=== PATIENT | female | born 1985 | race Caucasian/White ===

== ENCOUNTER 2017-11-24 15:10 | Emergency (ER) | payer OTHER ==
[~2017-11-24] VITALS: Ht 157.5 cm; Wt 60.3 kg
[2017-11-24 15:16] VITALS: BP 113/76
[2017-11-24] MEDS ORDERED: NORCO 5/3251 TABLET PO (16:21)
== END 2017-11-24 17:02 | disposition home or self-care (01) ==
LOC: EME 15:10
DX: S92.355A Nondisplaced fracture of fifth metatarsal bone, left foot, initial encounter for closed fracture (principal); Y93.01 Activity, walking, marching and hiking; Z88.8 Allergy status to other drugs, medicaments and biological substances
CPT/HCPCS: 73630; 99281; 99283

== ENCOUNTER 2018-01-04 02:39 | Emergency (ER) | payer OTHER ==
[~2018-01-04] VITALS: Ht 157.5 cm; Wt 63.4 kg
[~2018-01-04 02:39] MED LIST: NORCO 5/3251 TABLET PO
[2018-01-04 04:00] VITALS: BP 133/97
[2018-01-04] MEDS ORDERED: PERCOCET 5/31 TABLET PO (04:05)
[2018-01-04] MEDS ORDERED: AUGMENTIN875 MG PO (04:05)
== END 2018-01-04 04:51 | disposition home or self-care (01) ==
LOC: EME 02:39
DX: K08.89 Other specified disorders of teeth and supporting structures (principal); K03.81 Cracked tooth; F17.200 Nicotine dependence, unspecified, uncomplicated
CPT/HCPCS: 99281; 99283